=== PATIENT | male | born 1955 | race Two or more races ===

== ENCOUNTER 2023-12-23 19:09 | Inpatient (IN) | payer OTHER, MEDICAID ==
[~2023-12-23] VITALS: Ht 167.6 cm; Wt 58.0 kg
[2023-12-23] MEDS: SODIUM CHLORIDE 0.9% 1,000 ML IV SCH (01:00)
[2023-12-23 19:52] LABS: Urine Bacteria None Seen /hpf (None Seen)
[2023-12-23] MEDS: InsuLIN REG 1unit/0.01ml Soln (100units/ml) IV ONE (20:22)
[2023-12-23] MEDS: SODIUM CHLORIDE 0.9% 2,000 ML IV ONE (20:25)
[2023-12-23 20:26] LABS: Urine Blood Negative /uL (Negative); Urine Clarity Clear (Clear); Urine Color Light-Yellow (Yellow); Urine Protein, UAD Negative (Negative); Urine Specific Gravity 1.029 (1.001-1.035); Urine Urobilinogen Normal (Negative); Urine WBC <1 /hpf (0 - 3); Urine pH 5.5 (5.0-9.0)
[2023-12-23 20:26] LABS: Basophils # (auto) 0 10 ^3/uL (0-0.2); Eosinophils # (auto) 0 10 ^3/uL (0-0.8); Eosinophils % (auto) 0.9 % (0.0-7.0); Hematocrit 36.7 % (41.0-53.0); Hemoglobin 12.4 g/dL (13.5-17.5); Lymphocytes % (auto) 21.9 % (10.0-50.0); Mean Corpuscular Hemoglobin 32.6 pg (28.0-32.0); Mean Corpuscular Hgb Conc. 33.7 g/dL (32.0-36.0); Mean Corpuscular Volume 96.8 fL (80.0-100.0); Monocytes # (auto) 0.4 10 ^3/uL (0-1.3); Monocytes % (auto) 9.9 % (0.0-12.0); Neutrophils # (auto) 2.9 10 ^3/uL (1.6-8.6); Neutrophils % (auto) 66.3 % (37.0-80.0); Nucleated Red Blood Cells % 0.2 %; Platelet Count (auto) 193 10^3/uL (140-450); Red Cell Distribution Width 12.9 % (11.8-14.3); White Blood Cell 4.4 10^3/uL (4.4-10.8)
[2023-12-23 20:44] LABS: Alanine Aminotransferase 47 U/L (7-40); Albumin 4.1 g/dL (3.2-4.8); Alkaline Phosphatase 87 U/L (46-116); Anion Gap 5 (5-15); Aspartate Aminotransferase 22 U/L (13-40); BUN/Creatinine Ratio 21.8 (10.0-20.0); Bilirubin, Total 0.5 mg/dL (0.2-1.0); Blood Urea Nitrogen 32 mg/dL (9-23); Calcium 9.7 mg/dL (8.7-10.4); Carbon Dioxide 28 mmol/L (20-30); Chloride 96 mmol/L (98-107); Potassium 4.8 mmol/L (3.5-5.1); Sodium 129 mmol/L (136-145); Total Protein 6.5 g/dL (5.7-8.2)
[2023-12-23 20:51] LABS: Glucose 641 mg/dL (74-106); Lactic Acid w/Reflex 2.1 mmol/L (0.4-2.0)
[2023-12-23] MEDS ORDERED: DEXTROSE (50%) 50ML SYRG IV PRN (22:00)
[2023-12-23] MEDS ORDERED: ONDANSETRON HCL 4 MG/2 ML VIAL IV PRN (22:00)
[2023-12-23] MEDS ORDERED: DOCUSATE SOD 100 MG CAP PO PRN (22:00)
[2023-12-23] MEDS ORDERED: HYDROcodone-ACET 5/325MG TAB PO PRN (22:00)
[2023-12-23] MEDS ORDERED: ACETAMINOPHEN 325 MG TAB PO PRN (22:00)
[2023-12-23 22:37] LABS: Base Excess -2.4 mmol/L (-2.0-3.0)
[2023-12-23] MEDS ORDERED: MORPHINE SULFATE INJ 2 MG/ml SYRG IV PRN (22:45)
[2023-12-23] MEDS ORDERED: NITROGLYCERIN 0.4 MG SL TAB SL PRN (22:45)
[2023-12-23 23:00] LABS: Rapid Influenza A Negative (Negative); Rapid Influenza B Negative (Negative)
[2023-12-23 23:01] LABS: COVID19 ANTIGEN SOFIA FIA NEGATIVE (NEGATIVE)
[2023-12-23] MEDS: INSULIN LANTUS (GLARGINE) 1 /0.01ml (100units/ml) SC ONE (23:11)
[2023-12-23] MEDS: ATORVASTATIN 20 MG TAB PO SCH (23:12)
[2023-12-23] MEDS: ACETAMINOPHEN 500 MG TAB PO ONE (23:13)
[2023-12-24] MEDS: ACCU-CHEK COMFORT CURVE STRIP VI SCH (00:18)
[2023-12-24] MEDS: InsuLIN REG 1unit/0.01ml Soln (100units/ml) SC SCH (00:29)
[2023-12-24 02:33] VITALS: RESP 14; O2SAT 98
[2023-12-24 05:16] LABS: Basophils # (auto) 0 10 ^3/uL (0-0.2); Basophils % (auto) 0.7 % (0.0-2.0); Eosinophils # (auto) 0.1 10 ^3/uL (0-0.8); Eosinophils % (auto) 1.5 % (0.0-7.0); Hematocrit 32.5 % (41.0-53.0); Hemoglobin 11.1 g/dL (13.5-17.5); Lymphocytes # (auto) 1.3 10 ^3/uL (0.4-5.4); Lymphocytes % (auto) 28.6 % (10.0-50.0); Mean Corpuscular Hemoglobin 32.1 pg (28.0-32.0); Mean Corpuscular Hgb Conc. 34.1 g/dL (32.0-36.0); Mean Corpuscular Volume 94.1 fL (80.0-100.0); Monocytes # (auto) 0.5 10 ^3/uL (0-1.3); Monocytes % (auto) 11.3 % (0.0-12.0); Neutrophils # (auto) 2.6 10 ^3/uL (1.6-8.6); Neutrophils % (auto) 57.9 % (37.0-80.0); Platelet Count (auto) 180 10^3/uL (140-450); Red Blood Cells 3.45 10^6/uL (4.5-5.90); Red Cell Distribution Width 12.5 % (11.8-14.3); White Blood Cell 4.5 10^3/uL (4.4-10.8)
[2023-12-24 05:20] LABS: Alanine Aminotransferase 39 U/L (7-40); Albumin 3.7 g/dL (3.2-4.8); Alkaline Phosphatase 67 U/L (46-116); Anion Gap 10 (5-15); Aspartate Aminotransferase 13 U/L (13-40); BUN/Creatinine Ratio 28.4 (10.0-20.0); Bilirubin, Total 0.5 mg/dL (0.2-1.0); Blood Urea Nitrogen 29 mg/dL (9-23); Calcium 9.3 mg/dL (8.7-10.4); Carbon Dioxide 24 mmol/L (20-30); Chloride 104 mmol/L (98-107); Potassium 3.5 mmol/L (3.5-5.1); Sodium 138 mmol/L (136-145); Total Protein 5.7 g/dL (5.7-8.2)
[2023-12-24 05:30] LABS: Glucose 141 mg/dL (74-106)
[2023-12-24 07:45] VITALS: PULSE 80; RESP 18; O2SAT 98
[2023-12-24] MEDS: FAMOTIDINE (10MG/ML) 2ML VL IV SCH (10:32)
[2023-12-24 11:40] VITALS: RESP 16; O2SAT 95
[2023-12-24] MEDS ORDERED: ATOR10TA52 PO (11:56)
[2023-12-24] MEDS ORDERED: METF-372 PO (11:56)
[2023-12-24] MEDS ORDERED: GLIP5TAB21 PO (11:56)
[2023-12-24] MEDS ORDERED: INSUINJ37 SC (11:56)
[2023-12-24] MEDS ORDERED: FURO20TA4 PO (11:56)
[2023-12-24] MEDS ORDERED: OMEP1CAP70 PO (11:56)
[2023-12-24] MEDS ORDERED: TAMS0.4C39 PO (11:56)
[2023-12-24 12:08] VITALS: BP 126/77; PULSE 77; RESP 16; TEMP 98.1; O2SAT 98
[2023-12-24] MEDS: TAMSULOSIN HYDROCHLORIDE 0.4 MG CAP PO SCH (17:34)
[2023-12-24 20:00] VITALS: PULSE 97; PULSE 98; RESP 20; O2SAT 96
[2023-12-24 21:00] VITALS: BP 101/59; PULSE 98; RESP 20; TEMP 98.2; O2SAT 96
[2023-12-25] VITALS (8 sets, daily range): BP systolic 102–116; BP diastolic 58–75; PULSE 75–99; RESP 16–20; TEMP 37; O2SAT 96–100
== END 2023-12-25 18:13 | disposition home or self-care (01) | DRG 637 ==
LOC: ER 19:09 → TELE 22:32 → TELE-WESTW 12-24 11:17
PROVIDERS: ADMIT Nurse Practitioner Family; ATTEND Nurse Practitioner Family
DX: E11.65 Type 2 diabetes mellitus with hyperglycemia (principal); N17.0 Acute kidney failure with tubular necrosis; E87.1 Hypo-osmolality and hyponatremia; R35.0 Frequency of micturition; E78.5 Hyperlipidemia, unspecified; Z79.4 Long term (current) use of insulin; Z79.899 Other long term (current) drug therapy; A08.4 Viral intestinal infection, unspecified
CPT/HCPCS: 36415; 36600; 74176; 80053; 81001; 82010; 82805; 82962; 83605; 83930; 84484; 85025; 87086; 87426; 87804; 99291; G0378; J1815; J3490